=== PATIENT | female | born 1980 | race Caucasian/White ===

== ENCOUNTER 2016-12-05 22:05 | Emergency (ER) | payer OTHER ==
[2016-12-05] MEDS ORDERED: SODIUM CHLORIDE 0.9% 1,000 ML IV ONE (22:22)
[2016-12-05 22:37] LABS: BASOPHILS % (AUTO) 0.7 %; EOSINOPHILS # (AUTO) 0.2 10^3/uL (0.0-0.7); EOSINOPHILS % (AUTO) 2.7 %; HCT - HEMATOCRIT 32.5 % (37.0-47.0); LYMPHOCYTES # (AUTO) 1.9 10^3/uL (1.5-3.5); LYMPHOCYTES % (AUTO) 31.1 %; MEAN CORPUSCULAR HEMOGLOBIN 31.2 pg (27.0-31.0); MEAN CORPUSCULAR HGB CONC 33.9 g/dL (32.0-36.0); MEAN CORPUSCULAR VOLUME 91.9 fL (81.0-99.0); MEAN PLATELET VOLUME 6.1 fL (7.9-10.8); MONOCYTES # (AUTO) 0.5 10^3/uL (0.0-1.0); MONOCYTES % (AUTO) 8.9 %; NEUTROPHILS # (AUTO) 3.4 10^3/uL (1.5-6.6); NEUTROPHILS % (AUTO) 56.6 %; RED BLOOD COUNT 3.53 10^6/uL (4.20-5.40); RED CELL DISTRIBUTION WIDTH 12.8 % (12.0-15.0)
--- NOTE | 2016-12-05 22:48 | XRAY Preliminary Report ---
Exam: XR Chest 1 View IMPRESSION: Normal single view chest. [facility] SITE ID: [id number]
[2016-12-05 22:50] LABS: ALBUMIN/GLOBULIN RATIO 2.1 (1.0-2.2); BILIRUBIN,TOTAL 0.5 mg/dL (0.2-1.0); BUN - BLOOD UREA NITROGEN 8 mg/dL (6-20); CALCIUM 8.8 mg/dL (8.5-10.3); CARBON DIOXIDE - CO2 27 mmol/L (21-32); CHLORIDE 98 mmol/L (101-111); CREATININE 0.9 mg/dL (0.4-1.0); GFR - MDRD 70 (>89); GLUCOSE 125 mg/dL (70-100); LIPASE 26 U/L (22-51); POTASSIUM 3.5 mmol/L (3.5-5.0); SALICYLATE < 6.0 mg/dL; SODIUM 131 mmol/L (135-145); TOTAL PROTEIN 6.8 g/dL (6.7-8.2)
[2016-12-05 22:51] LABS: ACETAMINOPHEN < 10 ug/mL (10-30)
--- NOTE | 2016-12-05 22:51 | XRAY Report ---
EXAM: CHEST RADIOGRAPHY EXAM DATE: 12/05/2016 10:35 PM. CLINICAL HISTORY: Chest pressure, short of breath. COMPARISON: 12/05/2016. TECHNIQUE: 1 view. FINDINGS: Lungs/Pleura: No focal opacities evident. No pleural effusion. No pneumothorax. Mediastinum: Within exam limitations, cardiomediastinal contour is normal. Other: None. IMPRESSION: Normal single view chest. [facility] Referring Provider Line: [phone] SITE ID: [id number]
[2016-12-06 00:35] LABS: BILIRUBIN,URINE NEGATIVE (NEGATIVE)
[2016-12-06 00:36] LABS: UA CHARGE (STRIP ONLY) YES; UR CULTURE IF IND NOT INDICATED
[2016-12-06 00:37] LABS: HCG UR QUAL NEGATIVE
--- NOTE | 2016-12-06 01:13 | ED Physician Documentation ---
History of Present Illness - Stated complaint Stated Complaint: SOA/DIZZINES - Chief complaint Chief Complaint: Neuro - History obtained from History obtained from: Patient, Friend - Additonal information Additional information: Patient is a 36 year old female with multiple co-morbidities on multiple medications who is presenting to the emergency department for feeling foggy. patient states that the symptoms started earlier today. patient states that she just feels out of it. Patient denied any focal neurological deficits, or any trauma. Review of Systems Constitutional: reports: Fatigue. denies: Fever, Chills, Myalgias Eyes: reports: Photophobia. denies: Loss of vision, Decreased vision Ears: denies: Loss of hearing, Ear pain, Drainage/discharge Nose: denies: Rhinorrhea / runny nose, Congestion Throat: denies: Dental pain / toothache, Oral lesions / sores Cardiac: denies: Chest pain / pressure, Palpitations Respiratory: denies: Dyspnea, Cough GI: denies: Nausea, Vomiting, Constipation, Diarrhea : denies: Dysuria, Frequency, Hesitancy Skin: denies: Rash, Lesions Musculoskeletal: denies: Neck pain, Back pain Neurologic: reports: Generalized weakness, Difficulty speaking, Confused. denies: Focal weakness, Numbness, Near syncope, Syncope, Seizure, Headache Psychiatric: denies: Depressed, Suicidal Immunocompromised: denies: Immunocompromised PD PAST MEDICAL HISTORY - Past Medical History Cardiovascular: Hypertension, Valve disorder Respiratory: Asthma Neuro: Headache/migraine Endocrine/Autoimmune: None GI: None LAST INSERTER: Ovarian cysts : None Derm: None - Past Surgical History Past Surgical History: No /LAST INSERTER: Hysterectomy - Present Medications Home Medications: Ambulatory Orders Medication Instructions Recorded Confirmed Dextroamphetamine/Amphetamine 1 tab DAILY 09/25/14 12/05/16 [Adderall Xr 15 mg Capsule] Fexofenadine HCl [Jyoti Allergy] 1 tab PO DAILY 09/25/14 12/05/16 Fluticasone [Flonase] 1 puffs INH BID 09/25/14 12/05/16 Lamotrigine [Lamictal] 200 mg PO DAILY 09/25/14 12/05/16 Montelukast Sodium [Singulair] 10 mg PO DAILY 09/25/14 12/05/16 Vilazodone HCl [Viibryd] 40 mg PO DAILY 09/25/14 12/05/16 oxyCODONE/ACET 5/325 [Percocet 5 1 tab PO QID PRN 09/25/14 12/05/16 mg/325 mg] Candesartan Cilexetil 16 mg PO DAILY 12/05/16 12/05/16 Memantine [Namenda] 20 mg PO BID 12/05/16 12/05/16 Nortriptyline HCl 50 mg PO DAILY 12/05/16 12/05/16 QUEtiapine [SEROquel] 50 mg PO QPM 12/05/16 12/05/16 - Allergies Allergies/Adverse Reactions: Allergies Allergy/AdvReac Type Severity Reaction Status Date / Time amoxicillin Allergy Nausea Verified 09/25/14 14:59 azithromycin Allergy Nausea Verified 09/25/14 14:59 - Social History Does the pt smoke?: No Smoking Status: Never smoker Does the pt drink ETOH?: Yes - Immunizations Immunizations are current?: Yes PD ED PE NORMAL - Vitals Vital signs reviewed: Yes - General General: Alert and oriented X 3, No acute distress, Well developed/nourished - HEENT HEENT: Atraumatic, PERRL - Neck Neck: Supple, no meningeal sign, No JVD - Cardiac Cardiac: RRR, No murmur - Respiratory Respiratory: No respiratory distress, Clear bilaterally - Abdomen Abdomen: Soft, Non tender, Non distended - Derm Derm: Normal color, Warm and dry, No rash - Extremities Extremities: No deformity, No tenderness to palpate, Normal ROM s pain, No edema , No calf tenderness / cord - Neuro Neuro: Alert and oriented X 3, anesthesiology technologist 2-12 intact, No motor deficit, No sensory deficit, Normal speech, Other (nih 0) PD ED PE EXPANDED - HEENT HEENT: Dry mucous membranes Results - Vitals Vitals: Vital Signs - 24 hr 12/05/16 12/06/16 12/06/16 22:09 00:24 01:00 Temperature 36.3 C L Heart Rate 107 H 84 82 Respiratory 20 14 Rate Blood Pressure 119/70 120/79 117/84 H O2 Saturation 100 100 100 Oxygen O2 Source Room air - Labs Labs: Laboratory Tests 12/05/16 12/05/16 12/05/16 22:30 22:30 22:30 WBC 6.0 RBC 3.53 L Hgb 11.0 L Hct 32.5 L MCV 91.9 MCH 31.2 H MCHC 33.9 RDW 12.8 Plt Count 317 MPV 6.1 L Neut # 3.4 Lymph # 1.9 [place] # 0.5 Eos # 0.2 Baso # 0.0 Absolute Nucleated RBC 0.00 Nucleated RBCs 0.0 D-Dimer Sodium 131 L Potassium 3.5 Chloride 98 L Carbon Dioxide 27 Anion Gap 6.0 BUN 8 Creatinine 0.9 Estimated GFR (MDRD) 70 L Glucose 125 H Calcium 8.8 Total Bilirubin 0.5 AST 18 ALT 14 Alkaline Phosphatase 49 Troponin I < 0.04 Total Protein 6.8 Albumin 4.6 Globulin 2.2 Albumin/Globulin Ratio 2.1 Lipase 26 TSH Urine Color Urine Clarity Urine pH Ur Specific [place] Urine Protein Urine Glucose (UA) Urine Ketones Urine Occult Blood Urine Nitrite Urine Bilirubin Urine Urobilinogen Ur Leukocyte Esterase Ur Microscopic Review Urine Culture Comments Urine HCG, Qual Salicylates < 6.0 Urine Opiates Screen Ur Oxycodone Screen Urine Methadone Screen Ur Propoxyphene Screen Acetaminophen < 10 L Ur Barbiturates Screen Ur Tricyclics Screen Ur Phencyclidine Scrn Ur Amphetamine Screen U Methamphetamines Scrn U Benzodiazepines Scrn Urine Cocaine Screen U Cannabinoids Screen Ethyl Alcohol < 5.0 12/05/16 12/05/16 12/06/16 22:30 22:30 00:16 WBC RBC Hgb Hct MCV MCH MCHC RDW Plt Count MPV Neut # Lymph # [place] # Eos # Baso # Absolute Nucleated RBC Nucleated RBCs D-Dimer < 200.0 L Sodium Potassium Chloride Carbon Dioxide Anion Gap BUN Creatinine Estimated GFR (MDRD) Glucose Calcium Total Bilirubin AST ALT Alkaline Phosphatase Troponin I Total Protein Albumin Globulin Albumin/Globulin Ratio Lipase TSH 1.90 Urine Color Urine Clarity Urine pH Ur Specific [place] Urine Protein Urine Glucose (UA) Urine Ketones Urine Occult Blood Urine Nitrite Urine Bilirubin Urine Urobilinogen Ur Leukocyte Esterase Ur Microscopic Review Urine Culture Comments Urine HCG, Qual Salicylates Urine Opiates Screen NEGATIVE Ur Oxycodone Screen POSITIVE H Urine Methadone Screen NEGATIVE Ur Propoxyphene Screen NEGATIVE Acetaminophen Ur Barbiturates Screen NEGATIVE Ur Tricyclics Screen POSITIVE H Ur Phencyclidine Scrn NEGATIVE Ur Amphetamine Screen POSITIVE H U Methamphetamines Scrn NEGATIVE U Benzodiazepines Scrn POSITIVE H Urine Cocaine Screen NEGATIVE U Cannabinoids Screen NEGATIVE Ethyl Alcohol 12/06/16 00:16 WBC RBC Hgb Hct MCV MCH MCHC RDW Plt Count MPV Neut # Lymph # [place] # Eos # Baso # Absolute Nucleated RBC Nucleated RBCs D-Dimer Sodium Potassium Chloride Carbon Dioxide Anion Gap BUN Creatinine Estimated GFR (MDRD) Glucose Calcium Total Bilirubin AST ALT Alkaline Phosphatase Troponin I Total Protein Albumin Globulin Albumin/Globulin Ratio Lipase TSH Urine Color YELLOW Urine Clarity CLEAR Urine pH 7.0 Ur Specific [place] 1.010 Urine Protein NEGATIVE Urine Glucose (UA) NEGATIVE Urine Ketones NEGATIVE Urine Occult Blood NEGATIVE Urine Nitrite NEGATIVE Urine Bilirubin NEGATIVE Urine Urobilinogen 0.2 (NORMAL) Ur Leukocyte Esterase NEGATIVE Ur Microscopic Review NOT INDICATED Urine Culture Comments NOT INDICATED Urine HCG, Qual NEGATIVE Salicylates Urine Opiates Screen Ur Oxycodone Screen Urine Methadone Screen Ur Propoxyphene Screen Acetaminophen Ur Barbiturates Screen Ur Tricyclics Screen Ur Phencyclidine Scrn Ur Amphetamine Screen U Methamphetamines Scrn U Benzodiazepines Scrn Urine Cocaine Screen U Cannabinoids Screen Ethyl Alcohol PD MEDICAL DECISION MAKING - ED course Complexity details: reviewed old records, reviewed results, re-evaluated patient , considered differential, d/w patient ED course: Patient was seen and examined at bedside. IV access was gained and labs were drawn. patient was treated with ns bolus. Further discussion revealed that the patient had been taking medication for hypertension but was found to be mildly hypotensive here. Patient has also been experimentally started on namenda for headaches within the last month. Patient's diagnostic revealed mild dehydration and poly substance. Patient cleared up while in the emergency department and blood pressure improved. Patient's symptoms were likely being caused by hypotension, dehydration, and delirium. Upon discharge patient was awake, alert and oriented in no acute distress. Departure - Departure Disposition: 01 Home, Self Care Clinical Impression: Dehydration Condition: Good Instructions: ED Dehydration Follow-Up: John Cooley DO [Primary Care Provider] - Within 3 Days Comments: Your symptoms today were likely caused by a few different things. You were found to be dehyrated and slightly anemic. You should start taking supplemental iron and follow up with your pmd concerning your blood levels. You were also found to be hypotensive. I would talk with your pmd concerning your blood pressure medications. You should continue to try to stay well hydrated. there is also an interaction between all of the different medications causing delirium. If there was any way to decrease the amount of medications you are taking it could be helpful. You may return to the emergency department at any time for new, worsening or uncontrollable symptoms. Discharge Date/Time: 12/06/16 01:34
[2016-12-06 01:36] VITALS: BP 117/84
== END 2016-12-06 01:34 | disposition home or self-care (01) ==
LOC: ED 22:05
DX: E86.0 Dehydration (principal); I10 Essential (primary) hypertension; J45.909 Unspecified asthma, uncomplicated; Z87.42 Personal history of other diseases of the female genital tract
CPT/HCPCS: 36415; 71010; 80053; 80306; 80307; 80320; 80329; 81001; 81003; 81025; 83690; 84443; 84484; 85025; 85379; 87086; 96360; 99284

== ENCOUNTER 2017-05-04 09:30 | Outpatient (CLI) | payer OTHER ==
--- NOTE | 2017-05-04 15:42 | Ultrasound Report ---
EXAM: ABDOMEN ULTRASOUND LIMITED, RUQ EXAM DATE: 05/04/2017 09:40 AM. CLINICAL HISTORY: ABD PAIN,RT UPPER QUADRANT. COMPARISON: None. TECHNIQUE: Real-time scanning was performed with static images obtained. FINDINGS: Liver: Mildly echogenic. Simple cyst left hepatic lobe measuring 8 mm. Normal size 14.3 cm. Main port al vein flow: Hepatopetal. Gallbladder: Normal. No stones, wall thickening, or sonographic Garcia's sign. Biliary System: CBD measures 4.1 mm. No intrahepatic or extrahepatic ductal dilatation. Other: Normal right kidney. IMPRESSION: 1. Normal gallbladder. 2. Mildly fatty liver. Simple left hepatic cyst (8 mm), incidental. [facility] Referring Provider Line: [phone] SITE ID: [id number]
== END 2017-05-04 09:31 | disposition home or self-care (01) ==
LOC: DI 09:30
PROVIDERS: ATTEND Family Medicine
DX: K76.0 Fatty (change of) liver, not elsewhere classified (principal)
CPT/HCPCS: 76705

== ENCOUNTER 2017-05-08 09:00 | Outpatient (CLI) | payer OTHER ==
[2017-05-08 19:53] LABS: H. PYLORIS ANTIGEN STL NEGATIVE (Negative)
== END 2017-05-08 09:01 | disposition home or self-care (01) ==
LOC: LAB.WCP 09:00
PROVIDERS: ATTEND Family Medicine
DX: K21.9 Gastro-esophageal reflux disease without esophagitis (principal)
CPT/HCPCS: 87338

== ENCOUNTER 2020-05-05 16:03 | Outpatient (CLI) | payer OTHER ==
--- NOTE | 2020-05-06 09:04 | XRAY Report ---
PROCEDURE: Shoulder 3 View LT INDICATIONS: L SHOULDER PX TECHNIQUE: 3 views of the shoulder were acquired. COMPARISON: None. FINDINGS: Bones: No fractures or dislocations. No suspicious bony lesions. Visualized ribs appear intact. Soft tissues: No suspicious soft tissue calcifications. IMPRESSION: Unremarkable radiographic examination of left shoulder. Reviewed by: Deandre Leone MD on 05/06/2020 9:02 AM [facility] Approved by: Deandre Leone MD on 05/06/2020 9:02 AM [facility] Station ID: [id number]
== END 2020-05-05 23:59 | disposition home or self-care (01) ==
LOC: DI.N 16:03
PROVIDERS: ATTEND Nurse Practitioner
DX: M25.512 Pain in left shoulder (principal)

== ENCOUNTER 2020-05-19 12:49 | Outpatient (CLI) | payer OTHER ==
--- NOTE | 2020-05-19 15:52 | Ultrasound Report ---
PROCEDURE: Head or Neck Soft Tissue INDICATIONS: THYROID NODULE TECHNIQUE: Real-time scanning was performed of the thyroid gland, with image documentation. COMPARISON: None FINDINGS: Right: Thyroid lobe measures 4.9 x 1.9 x 1.5 cm, and is homogeneous in echotexture. A few sub-5 mm r ight thyroid nodules are incidentally noted. Left: Thyroid lobe measures 5.6 x 2.4 x 2.0 cm, and is homogenous in echotexture. Isthmus: 3 mm thick. Nodule number: One Location: Mid superior Size: 1.2 x 1.2 x 1.6 cm. Composition: Spongiform Echogenicity: Hypoechoic Shape: wider than tall. Margins: Irregular Echogenic foci: None Total points: 4 ACR TI-RADS category: TI-RADS 4, moderately suspicious Nodule number: Two Location: Mid inferior Size: 2.0 x 1.6 x 1.7 cm. Composition: Solid Echogenicity: Hypoechoic Shape: wider than tall. Margins: Smooth Echogenic foci: Peripheral calcifications Total points: 6 ACR TI-RADS category: TI-RADS 4, moderately suspicious IMPRESSION: 1. There are two TI-RADS 4 (moderately suspicious) left thyroid nodules which meets consensus criteri a for fine-needle aspiration. 2. No suspicious thyroid nodules identified on the right. ACR TI-RADS definitions and recommendations: TI-RADS 1 (benign): 0 points. FNA not needed. TI-RADS 2 (not suspicious): 2 points. FNA not needed. TI-RADS 3 (mildly suspicious): 3 points. ? FNA if 2.5 cm or larger, follow up if 1.5 cm or larger (at 1, 3, and 5 years). TI-RADS 4 (moderately suspicious): 4-6 points. ? FNA if 1.5 cm or larger, follow up if 1 cm or larger (at 1, 2, 3, and 5 years). TI-RADS 5 (highly suspicious): 7 points or more. ? FNA if 1 cm or larger, follow up if 0.5 cm or larger (every year for 5 years). Reviewed by: Nelson Adkins MD on 05/19/2020 3:51 PM PST Approved by: Nelson Adkins MD on 05/19/2020 3:51 PM PST Station ID: [id number]
== END 2020-05-19 12:50 | disposition home or self-care (01) ==
LOC: DI 12:49
PROVIDERS: ATTEND Otolaryngology
DX: E04.2 Nontoxic multinodular goiter (principal)

== ENCOUNTER 2022-09-20 12:23 | Outpatient (CLI) | payer OTHER ==
[2022-09-20 18:05] LABS: BASOPHILS # (AUTO) 0.1 10^3/uL (0.0-0.1); BASOPHILS % (AUTO) 0.9 %; EOSINOPHILS # (AUTO) 0.2 10^3/uL (0.0-0.7); HCT - HEMATOCRIT 42.7 % (37.0-47.0); HGB - HEMOGLOBIN 13.6 g/dL (12.0-16.0); LYMPHOCYTES # (AUTO) 1.3 10^3/uL (1.5-3.5); LYMPHOCYTES % (AUTO) 19.8 %; MEAN CORPUSCULAR HEMOGLOBIN 29.2 pg (27.0-31.0); MEAN CORPUSCULAR HGB CONC 31.9 g/dL (32.0-36.0); MEAN CORPUSCULAR VOLUME 91.6 fL (81.0-99.0); MEAN PLATELET VOLUME 9.3 fL (7.9-10.8); MONOCYTES # (AUTO) 0.7 10^3/uL (0.0-1.0); MONOCYTES % (AUTO) 9.7 %; NEUTROPHILS # (AUTO) 4.5 10^3/uL (1.5-6.6); NEUTROPHILS % (AUTO) 66.3 %; PLT - PLATELET COUNT 400 10^3/uL (130-450); RED BLOOD COUNT 4.66 10^6/uL (4.20-5.40); RED CELL DISTRIBUTION WIDTH 13.5 % (12.0-15.0); WHITE BLOOD COUNT 6.7 x10^3/uL (4.8-10.8)
[2022-09-20 18:22] LABS: ALBUMIN 3.8 g/dL (3.2-5.5); ALBUMIN/GLOBULIN RATIO 1.5 (1.0-2.2); ALKALINE PHOSPHATASE 42 IU/L (42-121); ALT ALANINE AMINOTRANSFERASE 15 IU/L (10-60); AST ASPARTATE AMINOTRANSFERASE 15 IU/L (10-42); BILIRUBIN,TOTAL 0.4 mg/dL (0.2-1.0); BUN - BLOOD UREA NITROGEN 6 mg/dL (6-20); CALCIUM 8.8 mg/dL (8.5-10.3); CARBON DIOXIDE - CO2 27 mmol/L (21-32); CHLORIDE 107 mmol/L (101-111); CHOL/HDL RATIO 3.2 (<4.4); CHOLESTEROL 200 mg/dL; CREATININE 0.7 mg/dL (0.4-1.0); GFR - MDRD 91 (>89); GLUCOSE 97 mg/dL (70-100); HDL CHOLESTEROL 63 mg/dL; LDL CHOLESTEROL,CALCULATED 119 mg/dL; LDL/HDL RATIO 1.9 (<4.4); POTASSIUM 4.6 mmol/L (3.5-5.0); SODIUM 139 mmol/L (135-145); TOTAL PROTEIN 6.3 g/dL (6.7-8.2); TRIGLYCERIDES 90 mg/dL; VLDL CHOLESTEROL 18 mg/dL
[2022-09-20 18:30] LABS: THYROID STIMULATING HORMONE 1.48 uIU/mL (0.34-5.60)
[2022-09-20 20:34] LABS: ESTIMATED AVERAGE GLUCOSE 108 mg/dL (70-100); HEMOGLOBIN A1c% 5.4 % (4.27-6.07)
== END 2022-09-20 12:24 | disposition home or self-care (01) ==
LOC: LAB.N 12:23
PROVIDERS: ATTEND Nurse Practitioner Family
DX: Z00.00 Encounter for general adult medical examination without abnormal findings (principal)
CPT/HCPCS: 36415; 80053; 80061; 83036; 83721; 84443; 85025

== ENCOUNTER 2023-01-30 12:58 | Outpatient (CLI) | payer OTHER ==
--- NOTE | 2023-01-31 11:18 | Mammography Report ---
BILATERAL DIGITAL SCREENING MAMMOGRAM 3D/2D: 01/30/2023 CLINICAL: Family history of breast cancer. Baseline exam. Routine screening. No prior exams were available for comparison. Both breasts are heterogeneously dense, which may obscure small masses (category c / 51-75% glandular tissue). No significant masses, calcifications, or other findings are seen in either breast. IMPRESSION: NEGATIVE There is no mammographic evidence of malignancy. A 1 year screening mammogram is recommended. Based on Tyrer-Cuzick model (a risk assessment model), the patient's lifetime risk is 44.9% and her 1 0 year risk is 13.5%. If a patient has an elevated risk, a more comprehensive evaluation should be co nsidered and/or a referral to a genetic counselor. The [place] [employer], [place] [employer], and NCCN Guidelines advise the consideration of Breast MRI as an adjunct to screening mammo graphy in patients whose "Lifetime risk to develop breast cancer" is 20% or higher. This exam was interpreted at Station ID: [id number]. NOTE: For mammograms, a report in lay terms will be sent to the patient. Approximately 15% of breast malignancies will not be visualized mammographically. In the management of a palpable breast mass, a negative mammogram must not discourage biopsy of a clinically suspicious lesion. Electronically Signed By: Jaxon castellon/leeann:01/30/2023 17:30:37 letter sent: No_Letter ACR BI-RADS Category 1: Negative 3341F PARENCHYMAL PATTERN: (D) - The breast(s) demonstrate(s) heterogeneously dense fibroglandular tommy maloney. BI-RADS CATEGORY: (1) - 1 Mammogram [id number] 1 year screening LATERALITY: (B)
== END 2023-01-30 12:59 | disposition home or self-care (01) ==
LOC: DI.N 12:58
DX: Z12.31 Encounter for screening mammogram for malignant neoplasm of breast (principal); Z80.3 Family history of malignant neoplasm of breast

== ENCOUNTER 2023-05-06 14:36 | Outpatient (CLI) | payer OTHER ==
--- NOTE | 2023-05-07 19:26 | SLEEP CARE CONSULTATION ---
Information from patient questionnaire entered by Flaquito Olmedo. I have reviewed and concur with the information entered by Flaquito Olmedo. This document represents the service I personally performed and the decisions made by me, Mohini Avelar MD, [facility]. History of Present Illness Service Date and Time: 05/06/2023 1436 Reason for Visit: New patient Chief Complaint: reports: Insomnia, Excessive daytime sleepiness, Fatigue, Frequent awakenings at night Date of Onset: INSOMNIA WHOLE LIFE EXCESSIVE DAYTIME SLEEPINESS 3YRS Usual bedtime: 10PM Time it takes to fall asleep: 1-4 Snores at night: Yes Observed to quit breathing while asleep: No Sleeps alone due to snoring: No Number of times waking at night: 2-3 Reasons for waking at night: reports: Pain, Bathroom, Other (NOISE) Toss, Turn, or Twitch while sleeping: Yes Recalls having dreams: Yes Usually gets out of bed at: WAKE UP 8AM OUT OF BED 12-2PM Feels refreshed in the morning: Yes Morning headache: Yes Sleepy or fatigued during the day: Yes Ever fallen asleep while driving: No Takes day naps: Yes Dreams during day naps: Yes Prior sleep studies: No Additional HPI information: I have the pleasure of seeing Ms. Prescott today regarding the possibility of her having obstructive sleep apnea. As you know, she is a 43-year-old lady who complains of insomnia, frequent awakenings, persistent fatigue, and excessive daytime sleepiness. The patient tells me that she normally goes to bed around 10 pm, and it takes her approximately 1 4 hours to fall asleep. She has not been told that she snores loudly and irregularly at night. She has never been observed to stop breathing in her sleep. She can recall waking up on the average of 2 - 3 times during the night. Most of the time she wakes up because of having to use the bathroom and pain. She has never awakened because of her own snoring, choking, or having to gasp for air. There is a lot of tossing and turning in her sleep. She has somniloquy (sleep talking) but not somnambulism (sleep walking). Generally, she can recall having dreams. In the morning she usually gets up out of the bed around 8 a.m. not feeling refreshed nor rested. She does not get out of bed until noon. She has had all the time. During the day she complains of feeling sleepy and fatigued. However, her score on [place] Sleepiness Scale is 3 out of 24. She never has fallen asleep while driving nor has had any accident due to sleepiness. She usually takes naps during the day. She reports having impaired concentration during the day. 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 Patient is Single and lives in [place]. Have you smoked in the past 12 months: No Alcohol use: No Caffeine use: Yes Caffeine amount and frequency: 1-2 ONCE A WEEK Family History Family history of sleep disordered breathing: No Allergies and Home Medications Known drug allergies: Yes (AMOX,EYRTHRO) Drug allergies reviewed: Yes Home medication list reviewed: Yes Allergy and home medication list: Allergies amoxicillin Allergy (Verified 05/02/23 15:52) Nausea azithromycin Allergy (Verified 05/02/23 15:52) Nausea Review of Systems Weight gain over past 5 years: 10 Weight loss over past 5 years: 10 Cardiovascular: reports: high blood pressure Respiratory: reports: wheeze Gastrointestinal: reports: heartburn Urinary: reports: frequency, urgency Neurological: reports: headaches, head trauma, disorientation Psychiatric: reports: Attention Deficit Hyperactivity, anxiety, depression, claustrophobia Ear/Nose/Throat: reports: nasal congestion, sinus problems, dry mouth/throat, wisdom teeth removed Endocrine: reports: sluggishness, too hot or cold, excessive thirst Musculoskeletal: reports: joint pain, neck pain Immunologic: reports: sneezing, allergies to food or environment Physical Exam Vital signs obtained and entered by: FLAQUITO Bradley MA Blood Pressure: 131/91 (IGHT ARM) Cuff size: regular Heart Rate: 84 O2 Saturation: 93 Height: 5 ft 4 in Weight: 142 lb 9.6 oz Body Mass Index: 24.5 BMI Classification: Normal Neck circumference: 14 Impression and Plan IMPRESSION: 1. Insomnia, psychophysiological. The most obvious reason for her insomnia is her spend almost all and all night in bed. She goes to bed at 10 pm and does not get out of bed until noon or 2 pm (14 16 hours a day). When this much time is spent in bed, insomnia will never resolve or even improve. Excessive time spent in bed also will cause sleep fragmentation and the total amount of sleep to vary from night to night. Given the low [place] Sleepiness Scale score of only 3, this patient is not sleepy during the day, and, therefore, more sleep is not possible and should not be encouraged. The only solution is limit time spent in bed to the normal 8 hours first. The causes of her wanting to not leave the bed need to be addressed. These include depression, fatigue, pain, etc. A sleep study will be performed to rule out sleep disrupting conditions which I have low suspicion of (pain is a sleep disrupting condition but obviously cannot be documented). Plan: 1. Schedule an in-laboratory polysomnography. 2. Limit time spent in bed to 8 hours. 3. Sedatives should be avoided because no drug can consistently make a person sleep more than 8 hours a night. 4. Return for a follow up after the sleep study. Counseling Topics: Activity level Follow up with Sleep Care in: 1-2 months Visit Type: In Office Time Spent with Patient (minutes): 15 Provider Statement: I spent 100% of the Face to Face Visit with the patient with greater than 50% spent counseling the patient and coordination of care.
[2023-05-07 19:28] VITALS: BP 131/91; O2SAT 93
== END 2023-05-06 14:37 | disposition home or self-care (01) ==
LOC: SC 14:36
PROVIDERS: ATTEND Internal Medicine Pulmonary Disease
DX: G47.8 Other sleep disorders (principal); F51.04 Psychophysiologic insomnia; R51.9 Headache, unspecified; G47.50 Parasomnia, unspecified; F32.A Depression, unspecified
CPT/HCPCS: 99202; 99212

== ENCOUNTER 2023-06-01 20:38 | Outpatient (CLI) | payer OTHER | END 2023-06-01 20:39 | disposition home or self-care (01) | LOC: SC 20:38 | PROVIDERS: ATTEND Internal Medicine Pulmonary Disease | DX: G47.8 Other sleep disorders (principal); F51.04 Psychophysiologic insomnia; G47.50 Parasomnia, unspecified; F32.A Depression, unspecified; R51.9 Headache, unspecified | CPT/HCPCS: 95810 ==

== ENCOUNTER 2023-07-15 13:52 | Outpatient (CLI) | payer OTHER ==
--- NOTE | 2023-07-15 14:07 | SLEEP CARE CONSULTATION ---
Information from patient questionnaire entered by Flaquito Olmedo. I have reviewed and concur with the information entered by Flaquito Olmedo. This document represents the service I personally performed and the decisions made by me, Mohini Avlear MD, [facility]. History of Present Illness Service Date and Time: 07/15/2023 1352 Initial [place] Sleepiness Scale score: 3 (05/06/23) Current [place] Sleepiness Scale score: 6 (07/15/23) Additional HPI information: Ms. Prescott returned for follow up of the sleep study she had on 06/01/23. The polysomnography showed the patient had normal sleep efficiency. The sleep architecture was slightly abnormal for lack of REM sleep. Respiratory monitoring showed no significant sleep disordered breathing (AHI = 0.9) or hypoxia (lina oxygen saturation of 92%). The patient slept almost exclusively in non-supine positions (supine AHI = 0.0; non-supine = 1.00). No audible snore. There was no significant periodic leg movement of sleep. Cardiac rhythm was normal sinus rhythm without significant arrhythmia. No abnormal behavior (parasomnia) observed during the night. The patient was informed of these findings. I explained to her that the sleep study was relatively normal. The patient agrees and says that she did think she would have slept that well with all the wires. Her main complaint remains fatigue. Her [place] Sleepiness Scale score today is 6 (was 3 on her initial visit). Sleep Study - Results Type of Sleep Study: Polysomnography (COMPLETED 06/01/23) Prior sleep studies: No Allergies and Home Medications Drug allergies reviewed: Yes Home medication list reviewed: Yes Allergy and home medication list: Allergies amoxicillin Allergy (Verified 07/11/23 17:12) Nausea azithromycin Allergy (Verified 07/11/23 17:12) Nausea Review of Systems Review of systems same as previous: Yes (NO CHANGE) Physical Exam Vital signs obtained and entered by: FLAQUITO Bradley MA Blood Pressure: 156/98 (LEFT ARM) Cuff size: regular Heart Rate: 85 O2 Saturation: 98 Height: 5 ft 4 in Weight: 151 lb Body Mass Index: 25.9 BMI Classification: Overweight Impression and Plan IMPRESSION: 1. Delayed sleep phase syndrome, causing sleep onset insomnia. She was advised to limit time spent in bed to 8 hours a night and not to work in bed. Without significant daytime sleepiness ([place] Sleepiness Scale score is < 10), her fatigue most likely is not related to lack of sleep. PLAN: 1. Follow up with her primary care provider. 2. Return for follow up on as needed basis. Follow up with Sleep Care in: as needed Visit Type: In Office Time Spent with Patient (minutes): 12 Provider Statement: I spent 100% of the Face to Face Visit with the patient with greater than 50% spent counseling the patient and coordination of care.
[2023-07-15 14:15] VITALS: BP 156/98; O2SAT 98
== END 2023-07-15 13:53 | disposition home or self-care (01) ==
LOC: SC 13:52
PROVIDERS: ATTEND Internal Medicine Pulmonary Disease
DX: G47.21 Circadian rhythm sleep disorder, delayed sleep phase type (principal)
CPT/HCPCS: 99212

== ENCOUNTER 2023-08-14 13:15 | Outpatient (CLI) | payer OTHER ==
--- NOTE | 2023-08-15 10:28 | XRAY Report ---
PROCEDURE: Elbow 3+V LT INDICATIONS: CONTUSION OF LEFT ELBOW TECHNIQUE: 3 views of the elbow were acquired. COMPARISON: None. FINDINGS: Bones: No fractures or dislocations. No suspicious bony lesions. Soft tissues: No effusion. No suspicious soft tissue calcifications or masses. IMPRESSION: No acute bony abnormality. Reviewed by: Kamilla Craig MD on 08/15/2023 10:27 AM PDT Approved by: Kamilla Craig MD on 08/15/2023 10:27 AM PDT Station ID: [id number]
== END 2023-08-14 13:30 | disposition home or self-care (01) ==
LOC: DI.N 13:15
PROVIDERS: ATTEND Family Medicine
DX: S50.02XA Contusion of left elbow, initial encounter (principal)

== ENCOUNTER 2023-12-24 13:18 | Outpatient (CLI) | payer OTHER ==
[2023-12-24 17:50] LABS: BASOPHILS % (AUTO) 0.3 %; EOSINOPHILS % (AUTO) 0.3 %; HGB - HEMOGLOBIN 13.7 g/dL (12.0-16.0); LYMPHOCYTES # (AUTO) 1.2 10^3/uL (1.5-3.5); LYMPHOCYTES % (AUTO) 12.9 %; MEAN CORPUSCULAR HEMOGLOBIN 30.4 pg (27.0-31.0); MEAN CORPUSCULAR HGB CONC 31.9 g/dL (32.0-36.0); MEAN CORPUSCULAR VOLUME 95.3 fL (81.0-99.0); MEAN PLATELET VOLUME 8.6 fL (7.9-10.8); MONOCYTES # (AUTO) 0.8 10^3/uL (0.0-1.0); MONOCYTES % (AUTO) 8.3 %; NEUTROPHILS % (AUTO) 77.9 %; PLT - PLATELET COUNT 528 10^3/uL (130-450); RED BLOOD COUNT 4.51 10^6/uL (4.20-5.40); RED CELL DISTRIBUTION WIDTH 12.1 % (12.0-15.0); WHITE BLOOD COUNT 9.1 x10^3/uL (4.8-10.8)
[2023-12-24 18:12] LABS: % IRON SATURATION 33 % (20-50); ALBUMIN 4.3 g/dL (3.2-5.5); ALBUMIN/GLOBULIN RATIO 1.5 (1.0-2.2); ALKALINE PHOSPHATASE 54 IU/L (42-121); ALT ALANINE AMINOTRANSFERASE 14 IU/L (10-60); AST ASPARTATE AMINOTRANSFERASE 15 IU/L (10-42); BILIRUBIN,TOTAL 0.4 mg/dL (0.2-1.0); BUN - BLOOD UREA NITROGEN 7 mg/dL (6-20); CALCIUM 9.4 mg/dL (8.5-10.3); CARBON DIOXIDE - CO2 31 mmol/L (21-32); CHLORIDE 99 mmol/L (101-111); CHOL/HDL RATIO 2.5 (<4.4); CHOLESTEROL 172 mg/dL; CREATININE 0.7 mg/dL (0.6-1.3); GFR - MDRD 90 (>89); GLUCOSE 75 mg/dL (74-104); HDL CHOLESTEROL 68 mg/dL; IRON 96 ug/dL (50-212); LDL CHOLESTEROL,CALCULATED 80 mg/dL; LDL/HDL RATIO 1.2 (<4.4); POTASSIUM 4.2 mmol/L (3.5-4.5); SODIUM 136 mmol/L (135-145); TOTAL IRON BINDING CAPACITY 293 ug/dL (250-450); TOTAL PROTEIN 7.1 g/dL (6.4-8.9); TRANSFERRIN 209 mg/dL (203-362); TRIGLYCERIDES 122 mg/dL; VLDL CHOLESTEROL 24 mg/dL
[2023-12-24 18:23] LABS: THYROID STIMULATING HORMONE 0.64 uIU/mL (0.34-5.60)
[2023-12-24 18:29] LABS: FERRITIN 39.8 ng/mL (11.0-306.8)
== END 2023-12-24 13:19 | disposition home or self-care (01) ==
LOC: LAB.N 13:18
PROVIDERS: ATTEND Nurse Practitioner Family
DX: I10 Essential (primary) hypertension (principal); R53.82 Chronic fatigue, unspecified; Z13.220 Encounter for screening for lipoid disorders; E55.9 Vitamin D deficiency, unspecified
CPT/HCPCS: 36415; 80053; 80061; 82306; 82728; 83540; 83721; 84443; 84466; 85025